=== PATIENT | female | born 1975 | race Two or more races ===

== ENCOUNTER 2017-11-19 11:24 | Emergency (ER) | payer OTHER ==
[2017-11-19 11:28] VITALS: BP 111/67; PULSE 62; TEMP 99.7; BMI 27.3
--- NOTE | 2017-11-19 11:45 | PDOC ---
History of Present Illness - General Chief Complaint: Pain Stated Complaint: PAIN Time Seen by Provider: 11/19/17 11:31 History Source: Patient Exam Limitations: No Limitations - History of Present Illness Travel History: No Initial Comments: 11/19/17 11:54 42 yr female currently taking bactrim for UTI diagnosed 2 days ago. pt states continued pain and burning on urination since Nov 07, pt took one week amoxicillin with no relief. Pt denies fever or chills, has low abd pain and back pain. Pt has vaginal itching and discomfort. 11/19/17 11:56 Past History - Past Medical History Allergies/Adverse Reactions: Allergies Allergy/AdvReac Type Severity Reaction Status Date / Time No Known Allergies Allergy Verified 11/19/17 11:28 Home Medications: Ambulatory Orders Doxycycline Hyclate 100 mg PO BID #28 capsule 11/19/17 Fluconazole 200 mg PO ONCE #1 tablet 11/22/17 COPD: No - Suicide/Smoking/Psychosocial Hx Smoking History: Never smoked Have you smoked in the past 12 months: No Hx Alcohol Use: No Drug/Substance Use Hx: No Substance Use Type: None Abd/GI Specific PMHX - Complaint Specific PMHX Colitis: No Diverticulitis: No Gall Bladder Disease: No GERD: No Hepatitis: No Irritable Bowel Synd (IBS): No Pancreatitis: No GI Ulcer Disease: No *Physical Exam - Vital Signs Last Vital Signs Temp Pulse Resp BP Pulse Ox 99.7 F H 62 18 111/67 98 11/19/17 11:25 11/19/17 11:25 11/19/17 11:25 11/19/17 11:25 11/19/17 11:25 - Physical Exam General Appearance: Yes: Nourished, Appropriately Dressed HEENT: positive: EOMI, MERCEDES, TMs Normal, Pharynx Normal Neck: positive: Supple Respiratory/Chest: positive: Lungs Clear, Normal Breath Sounds Cardiovascular: positive: Regular Rhythm, Regular Rate Female Pelvic Exam: positive: normal external exam, CMT, discharge (thick yellow white discharge , mild CMT on exam ) Gastrointestinal/Abdominal: positive: Normal Bowel Sounds, Tender (suprapubic area ), Soft Musculoskeletal: positive: Normal Inspection. negative: CVA Tenderness, CVA Tenderness (R), CVA Tenderness (L) Extremity: positive: Normal Capillary Refill, Normal Inspection, Normal Range of Motion. 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
[2017-11-19 12:07] LABS: URINE APPEARANCE CLEAR; URINE BILIRUBIN NEGATIVE (<2.0 mg/dL); URINE COLOR YELLOW; URINE GLUCOSE (UA) NEGATIVE (NEGATIVE); URINE KETONE NEGATIVE (NEGATIVE); URINE LEUK ESTERASE NEGATIVE (NEGATIVE); URINE NITRITE NEGATIVE (NEGATIVE); URINE PROTEIN NEGATIVE (NEGATIVE); URINE UROBILINOGEN NEGATIVE mg/dL (0.2-1.0)
[2017-11-19 12:08] LABS: HCG,QUALITATIVE URINE Negative
[2017-11-19] MEDS ORDERED: AZITHROMYCIN 500 MG TABLET PO ONE (12:28)
[2017-11-19] MEDS ORDERED: AZITHROMYCIN 250 MG TABLET ONE (12:37)
[2017-11-19] MEDS ORDERED: AZITHROMYCIN 250 MG TABLET PO ONE (12:44)
== END 2017-11-19 13:15 | disposition home or self-care (01) ==
LOC: JERFT 11:24
DX: N73.9 Female pelvic inflammatory disease, unspecified (principal)
CPT/HCPCS: 36415; 81003; 84703; 87070; 87086; 87205; 87491; 87591; 99281-25

== ENCOUNTER 2020-02-21 05:08 | Day surgery (SDC) | payer OTHER ==
[2020-02-19 16:50] VITALS: BMI 26.5
[2020-02-21] MEDS ORDERED: BUPIVACAINE HCL 100 ML ONE (10:56)
[2020-02-21] MEDS ORDERED: ROCURONIUM BROMIDE 50 MG/5 ML SYRINGE ONE (11:00)
[2020-02-21] MEDS ORDERED: LIDOCAINE HCL/PF 2% SDV 5ML VIAL ONE (11:00)
[2020-02-21] MEDS ORDERED: PROPOFOL 20 ML ONE (11:01)
[2020-02-21] MEDS ORDERED: MIDAZOLAM HCL 2 MG/2 ML SINGLE DOSE VIAL ONE (11:02)
[2020-02-21] MEDS ORDERED: ceFAZolin SODIUM 1 GM VIAL IVPB ONE (11:15)
[2020-02-21] MEDS ORDERED: BUPIVACAINE HCL/PF 0.5% (5MG/ML) 10 ML VIAL IJ ONE ×2 (11:22)
[2020-02-21] MEDS ORDERED: NEOSTIGMINE METHYLSULFATE 0.5 MG/ML - 10 ML MDV ONE (11:33)
[2020-02-21] MEDS ORDERED: GLYCOPYRROLATE 0.2 MG/1 ML VIAL ONE ×2 (11:33)
[2020-02-21] MEDS ORDERED: ACETAMINOPHEN 1000 MG/100 ML VIAL (NON FORMULARY) IVPB ONE ×2 (12:41→13:52)
[2020-02-21] MEDS ORDERED: traMADol HCL 50 MG TABLET PO PRN (12:42)
[2020-02-21] MEDS ORDERED: ACETAMINOPHEN INJECTION 100 ML IVPB ONE (13:41)
[2020-02-21 18:44] VITALS: BP 133/77; PULSE 60; TEMP 97.3
== END 2020-02-21 18:30 | disposition home or self-care (01) ==
LOC: JASU-SURG 05:08
PROVIDERS: ATTEND Surgery
PROC: 0FT44ZZ Resection of Gallbladder, Percutaneous Endoscopic Approach (ICD-10-PCS; principal; 2020-02-21 10:30)
DX: K80.10 Calculus of gallbladder with chronic cholecystitis without obstruction (principal)
CPT/HCPCS: 84703; 88304-TC; 94760; J0131

== ENCOUNTER 2020-12-29 17:01 | Observation (INO) | payer OTHER ==
[2020-12-29 17:44] VITALS: BMI 25.1
[2020-12-29] MEDS ORDERED: ASPIRIN 81 MG CHEWABLE TABLETS PO ONE ×2 (18:02→19:41)
[2020-12-29] MEDS ORDERED: ASPIRIN 81 MG CHEWABLE TABLETS ONE (18:31)
[2020-12-29 20:41] LABS: BASO % 0.8 % (0-2.0); EOS % 3.1 % (0-4.5); HEMATOCRIT 39.5 % (32.4-45.2); HEMOGLOBIN 13.3 GM/dL (10.7-15.3); LYMPH % 42.1 % (8-40); MCH 30.4 pg (25.7-33.7); MCHC 33.7 g/dl (32.0-36.0); MEAN CELL VOLUME 90.2 fl (80-96); MEAN PLT VOLUME 9.6 fl (7.5-11.1); PLATELET COUNT 179 10^3/uL (134-434); RBC 4.37 M/mm3 (3.60-5.2); RDW 13.4 % (11.6-15.6)
[2020-12-29 20:48] LABS: PROTHROMBIN TIME (PATIENT) 11.7 SEC (9.7-13.0)
[2020-12-29 20:51] LABS: ACTIVATED PTT 38.3 SECONDS (25.2-36.5)
[2020-12-29 20:54] LABS: ALBUMIN 4.1 g/dl (3.4-5.0); BLOOD UREA NITROGEN 12.2 mg/dL (7-18); CALCIUM 9.3 mg/dL (8.5-10.1); MAGNESIUM 2.3 mg/dL (1.8-2.4)
[2020-12-29 20:57] LABS: CREATININE 0.7 mg/dL (0.55-1.3)
[2020-12-29 20:58] LABS: BILIRUBIN,TOTAL 0.3 mg/dL (0.2-1); TOT PROT 7.8 g/dl (6.4-8.2)
[2020-12-30] MEDS ORDERED: DOCUSATE SODIUM 100 MG CAPSULE (FP) PO ONE (09:08)
[2020-12-30] MEDS: DOCUSATE SODIUM 100 MG CAPSULE (FP) PO SCH ×2 (09:30→21:38)
[2020-12-31 07:00] LABS: BASO % 0.6 % (0-2.0); LYMPH % 28.4 % (8-40); MCHC 34.4 g/dl (32.0-36.0); MEAN CELL VOLUME 90.2 fl (80-96); MONO % 7.1 % (3.8-10.2); NEUT % 60.9 % (42.8-82.8); PLATELET COUNT 164 10^3/uL (134-434); RBC 4.21 M/mm3 (3.60-5.2); WHITE BLOOD COUNT 6.5 K/mm3 (4.0-10.0)
[2020-12-31 07:32] LABS: CALCIUM 9.2 mg/dL (8.5-10.1)
[2020-12-31 07:33] LABS: ALBUMIN 3.6 g/dl (3.4-5.0)
[2020-12-31 07:35] LABS: CHOLESTEROL 200 mg/dL (50-200)
[2020-12-31 07:36] LABS: CREATININE 0.8 mg/dL (0.55-1.3); LDL CHOLESTEROL (ONLY SJRH) 118 mg/dL (5-100); TRIGLYCERIDES 78 mg/dL (0-150)
[2020-12-31 07:37] LABS: BILIRUBIN,TOTAL 0.4 mg/dL (0.2-1); TOT PROT 7.2 g/dl (6.4-8.2)
[2020-12-31 07:39] LABS: HDL CHOLESTEROL 59 mg/dL (40-60)
[2020-12-31 17:53] VITALS: BP 110/85; PULSE 63; TEMP 98.2
== END 2020-12-31 19:28 | disposition home or self-care (01) ==
LOC: JER 17:01 → JERBED 22:30 → INTOOBSV 22:30 → J4W 12-31 00:12
PROVIDERS: ADMIT Internal Medicine; ATTEND Internal Medicine
DX: R07.9 Chest pain, unspecified (principal); R10.9 Unspecified abdominal pain; N93.8 Other specified abnormal uterine and vaginal bleeding; N92.0 Excessive and frequent menstruation with regular cycle; N73.9 Female pelvic inflammatory disease, unspecified
CPT/HCPCS: 36415; 71046-TC-FY; 80053; 80061; 82550; 83036; 83735; 84443; 84484; 84703; 85025; 85610; 85730; 93005; 93010; 93306-TC; 93351; 99285-25; C9803; G0378; U0003; U0005

== ENCOUNTER 2023-01-11 21:28 | Observation (INO) | payer OTHER ==
[2023-01-11] MEDS ORDERED: FAMOTIDINE 20 MG/50 ML IVPB 20 MG/50 ML MG IVPB ONE (22:21)
[2023-01-11] MEDS ORDERED: MAG HYDROX/AL HYDROX/SIMETH 30 ML UNIT-DOSE CUP PO ONE (22:22)
[2023-01-11] MEDS ORDERED: ACETAMINOPHEN 1000 MG/100 ML BAG IVPB ONE (22:27)
[2023-01-11] MEDS ORDERED: MAG HYDROX/AL HYDROX/SIMETH 30 ML UNIT-DOSE CUP ONE (22:30)
[2023-01-11] MEDS ORDERED: ACETAMINOPHEN INJECTION 100 ML IVPB ONE (22:30)
[2023-01-11] MEDS ORDERED: FAMOTIDINE 10 MG/ML VIAL IVPB ONE (22:31)
[2023-01-11 22:46] LABS: BASO % 0.2 % (0-2.0); EOS % 1.1 % (0-4.5); HEMATOCRIT 38.6 % (32.4-45.2); HEMOGLOBIN 13.4 GM/dL (10.7-15.3); LYMPH % 9.7 % (8-40); MCH 30.4 pg (25.7-33.7); MCHC 34.7 g/dl (32.0-36.0); MEAN CELL VOLUME 87.6 fl (80-96); MEAN PLT VOLUME 9.9 fl (7.5-11.1); PLATELET COUNT 130 10^3/uL (134-434); RBC 4.41 M/mm3 (3.60-5.2); RDW 13.5 % (11.6-15.6); WHITE BLOOD COUNT 6.1 K/mm3 (4.0-10.0)
[2023-01-11 22:54] LABS: POTASSIUM 3.3 mmol/L (3.5-5.1)
[2023-01-11 22:55] LABS: CALCIUM 8.6 mg/dL (8.5-10.1)
[2023-01-11 22:56] LABS: ALBUMIN 3.8 g/dl (3.4-5.0)
[2023-01-11] MEDS ORDERED: POTASSIUM CHLORIDE ORAL LIQUID 20 MEQ/15 ML PO ONE (22:58)
[2023-01-11 22:59] LABS: CREATININE 0.7 mg/dL (0.55-1.3)
[2023-01-11 23:01] LABS: BILIRUBIN,TOTAL 0.4 mg/dL (0.2-1); TOT PROT 6.9 g/dl (6.4-8.2)
[2023-01-11] MEDS ORDERED: POTASSIUM CHLORIDE ORAL LIQUID 20 MEQ/15 ML ONE (23:03)
[2023-01-11] MEDS ORDERED: ASPIRIN 81 MG CHEWABLE TABLETS PO ONE (23:37)
[2023-01-11] MEDS ORDERED: ASPIRIN 81 MG CHEWABLE TABLETS ONE (23:41)
[2023-01-12] MEDS ORDERED: PANTOPRAZOLE 40 MG TABLET PO ONE (06:23)
[2023-01-12] MEDS: PANTOPRAZOLE 40 MG TABLET PO SCH (06:35)
[2023-01-12 08:20] LABS: BASO % 0.2 % (0-2.0); EOS % 1.5 % (0-4.5); LYMPH % 12.5 % (8-40); MCH 30.2 pg (25.7-33.7); MCHC 34.1 g/dl (32.0-36.0); MEAN CELL VOLUME 88.5 fl (80-96); MEAN PLT VOLUME 11.1 fl (7.5-11.1); MONO % 6.9 % (3.8-10.2); NEUT % 78.9 % (42.8-82.8); PLATELET COUNT 141 10^3/uL (134-434); RDW 13.5 % (11.6-15.6); WHITE BLOOD COUNT 4.6 K/mm3 (4.0-10.0)
[2023-01-12 08:23] LABS: POTASSIUM 4.2 mmol/L (3.5-5.1)
[2023-01-12 08:33] LABS: ALBUMIN 3.6 g/dl (3.4-5.0); BLOOD UREA NITROGEN 14.7 mg/dL (7-18)
[2023-01-12 08:36] LABS: CREATININE 0.6 mg/dL (0.55-1.3)
[2023-01-12 08:37] LABS: BILIRUBIN,TOTAL 0.5 mg/dL (0.2-1); TOT PROT 6.5 g/dl (6.4-8.2)
[2023-01-12 08:38] LABS: CALCIUM 8.6 mg/dL (8.5-10.1)
[2023-01-12] MEDS: ASPIRIN COATED 81 MG TABLET.EC PO SCH (11:12)
[2023-01-12] MEDS: ENOXAPARIN NA (PORCINE) 40 MG/0.4 ML DISP.SYRIN SQ SCH (11:12)
[2023-01-12 18:58] VITALS: BMI 27.9
[2023-01-12] MEDS ORDERED: FLU VACCINE (FLULAVAL) PF 60 MCG/0.5 ML SYRINGE 2023-2024 IM ONE (19:30)
[2023-01-12] MEDS ORDERED: ATORVASTATIN CA 40 MG TABLET (FP) PO SCH (22:00)
[2023-01-13 04:37] VITALS: TEMP 97.3
[2023-01-13] MEDS: PANTOPRAZOLE 40 MG TABLET PO SCH (06:02)
[2023-01-13 06:57] VITALS: BP 111/56; PULSE 54
[2023-01-13 08:32] VITALS: RESP 18
[2023-01-13] MEDS: ENOXAPARIN NA (PORCINE) 40 MG/0.4 ML DISP.SYRIN SQ SCH (10:18)
[2023-01-13] MEDS: ASPIRIN COATED 81 MG TABLET.EC PO SCH (10:19)
== END 2023-01-13 14:19 | disposition home or self-care (01) ==
LOC: JER 21:28 → JERBED 01-12 00:32 → UNDOADMOB 01-12 00:32 → INTOOBSV 01-12 02:35 → OBSVTOIN 01-12 02:35 → JERBED 01-12 18:33 → J4W 01-12 18:33 → JERBED 01-13 09:21 → J4W 01-13 09:21
PROVIDERS: ADMIT Internal Medicine; ATTEND Internal Medicine
PROC: 3E033NZ Introduction of Analgesics, Hypnotics, Sedatives into Peripheral Vein, Percutaneous Approach (ICD-10-PCS; principal; 2023-01-13)
PROC: 3E033GC Introduction of Other Therapeutic Substance into Peripheral Vein, Percutaneous Approach (ICD-10-PCS; 2023-01-13)
PROC: 3E023GC Introduction of Other Therapeutic Substance into Muscle, Percutaneous Approach (ICD-10-PCS; 2023-01-13)
DX: R10.13 Epigastric pain (principal); R79.89 Other specified abnormal findings of blood chemistry; E78.5 Hyperlipidemia, unspecified; I10 Essential (primary) hypertension; F32.A Depression, unspecified; R11.0 Nausea; R77.8 Other specified abnormalities of plasma proteins; K92.9 Disease of digestive system, unspecified; R07.9 Chest pain, unspecified
CPT/HCPCS: 36415; 71046-TC-FY; 80053; 83690; 84484; 84703; 85025; 90686; 93005; 93010; 93306-TC; 96365; 96372; 96375; 99285-25; G0378